=== PATIENT | male | born 1995 | race Caucasian/White ===

== ENCOUNTER 2018-12-04 16:01 | Emergency (ER) | payer OTHER ==
[~2018-12-04] VITALS: Ht 188 cm; Wt 78.0 kg
[2018-12-04 16:05] VITALS: BP 128/81
--- NOTE | 2018-12-04 16:28 | NUR ---
pt presented to ed with a piercing on his penis for two weeks. pt a&[id number]. pt placed in room and assessment completed.
== END 2018-12-04 16:50 | disposition home or self-care (01) ==
LOC: ED 16:44
DX: N48.89 Other specified disorders of penis (principal)
CPT/HCPCS: 99283